=== PATIENT | male | born 1990 | race Caucasian/White ===

== ENCOUNTER 2020-01-18 21:00 | Emergency (ER) | payer MEDICAID, SELFPAY ==
[2020-01-18 21:01] VITALS: BP 132/97; PULSE 133; RESP 20; TEMP 37.2; O2SAT 99; BMI 22.3
--- NOTE | 2020-01-18 21:17 | ED.VIS.GEN ---
History of Present Illness Chief Complaint: Abscess Detail of Chief Complaint: chest pain Informant: Patient Onset: Weeks - 3-4 Context: Gradual Onset Timing: Continuous Quality: red, sore Location: right chest; no radiation Current Severity: Severe Maximum Severity: Severe Worsened by: palpation, moving RUE, deep breathing Relieved by: remaining still Associated Symptoms: none; no fevers, dyspnea, chills, other pains Narrative: Patient states that this area seems to be infected and has been progressing for 3 or 4 weeks. It is worse with deep breathing, moving his right arm around, and has remained in his right chest. He occasionally uses methamphetamine by injecting IV, he does not use IV opiates, those will kill you. He denies any discharge from his chest wall/area where he is having pain. He denies any other medical problems. Past Medical History - Allergies and Home Meds Allergies/Adverse Reactions: Allergies No Known Allergies Allergy (Verified 01/18/20 21:05) Past Medical History: None Surgical History: no surgical history Lives: With Family Smoking Status: Current every day smoker Drugs: - - Methamphetamine Review of Systems General: Denies: Chills, Fever, Sweats Eyes: Denies: Visual changes - bilaterally, Diplopia ENT: Denies: Rhinorrhea, Sore throat Cardiovascular: Reports: Chest pain - See HPI. Denies: Palpitations Respiratory: Denies: Dyspnea, Cough, Dyspnea on exertion Gastrointestinal: Denies: Abdominal pain, Nausea, Vomiting, Diarrhea, Melena, Hematochezia Genitourinary: Denies: Dysuria, Hematuria, Frequency Musculoskeletal: Denies: Back pain, Extremity Pain Skin: Reports: Abscess - Possibly, see HPI. Denies: Rash, Wounds Neurological: Denies: Headache, Weakness, Numbness Physical Exam Vital Signs/Narrative: Vital Signs Temp Pulse Resp BP Pulse Ox 01/18/20 21:01 98.9 F 133 H 20 H 132/97 H 99 Inital Vital Signs reviewed: Yes General: Well nourished, Well developed, No Acute Distress Head: Normocephalic, Atraumatic Eyes: Perrl, EOMI ENT: Moist mucous membranes, No rhinorrhea Neck: Supple, Nontender Cardiovascular: Regular rate, Regular rhythm, No murmurs, Tachycardia Respiratory: No distress, CTA bilaterally, Chest tenderness - Right chest wall at erythematous area upper pectoral area. No nipple/areola involvement. Affected area is just caudal to a 1 cm healing wound with a scab that does not have surrounding cellulitis, abscess, discharge. Abdomen: Soft, Nontender, Nondistended, Normal bowel sounds Back: Nontender, Normal Inspection Extremities: Nontender, No edema Skin: Normal color, Rash - Blanching tender warm erythema right upper chest wall. No bullae, petechiae, no fluctuance or abscess, only mild induration. No expressible discharge, no pointing, does not appear to be abscessed. Healing wound with scab above this, see chest exam. Neurological: Alert, Oriented x3, Cranial nerves II-XII grossly intact, Normal Strength, Normal Sensation, Normal Gait Psychological: Agitated, - - Anxious Diagnostic/Tx/Re-eval - Medical Decision Making As I discussed with the patient, after I got him to lie down supine and I was able to examine the area more closely, I do not feel an abscess. I do not think cutting into this or attempting to aspirate it will yield anything but pain for the patient. For that reason, I recommend antibiotics for what appears to be a relatively small area of cellulitis, it is about 5 cm in diameter. I asked him about the scab on his chest wall just above this, it is unknown if this is a nidus for infection, certainly could have been and things could have drawn more caudal due to gravity, but at this time it is not involved in the cellulitic area. 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 It was around 3 or so weeks ago, it is unclear if the timing is such that this could have caused his infection, certainly the location is very suspicious for that. His lungs are clear, and he denies any dyspnea, he states it just hurts to breathe and he seems uncomfortable with regards to pain. He can move his arm around okay, he can sit up on his own, and he is breathing okay. I think it would be reasonable to treat him with a dose of IM Ancef and Bactrim started now, he was also given an oxycodone, and he is prescribed cephalexin and Bactrim and advised to watch the area, we discussed reasons to return, and given his drug use issues, I am not comfortable prescribing him narcotics at this time. He agrees with all of this and he was referred to the next doctor on the unassigned list since he has no PCP. ED Disposition - Plan for ED Patient: Disposition: Home or Assisted Living Diagnosis: Cellulitis of chest wall Instructions: ED Cellulitis Prescriptions: Smz/Tmp Ds [Bactrim Ds] 1 tab PO BID #20 tab Prescription Printed Cephalexin [Keflex] 500 mg PO Q6 10 Days #40 cap Prescription Printed Referrals: Dalton Soto III, MD [STAFF PHYSICIAN] - 3-5 Days if not improving
[2020-01-18] MEDS: oxyCODONE 5 MG Tablet PO (21:41)
[2020-01-18] MEDS: Smz/Tmp Ds Tablet 1 TABLET PO (21:41)
[2020-01-18] MEDS: Cefazolin 1 GM/5 ML Vial IM (21:52)
== END 2020-01-18 22:10 | disposition home or self-care (01) ==
LOC: ED 21:29
PROVIDERS: Emergency Provider Emergency Medicine
DX: L03.313 Cellulitis of chest wall (principal); F17.200 Nicotine dependence, unspecified, uncomplicated
CPT/HCPCS: 96372; 99283